=== PATIENT | male | born 1960 | race Caucasian/White ===

== ENCOUNTER 2017-01-21 19:44 | Emergency (ER) | payer SELFPAY ==
[2017-01-21 19:52] VITALS: BP 164/107
--- NOTE | 2017-01-21 21:44 | UC ---
Throat Pain/Nasal Lucien HPI - HPI Summary HPI Summary: 4-5 DAYS OF COUGH, CONGESTION, ST AND SWOLLEN GLANDS. GRAND DAUGHTERS BTH HAD STREP. DENIES FEVER. COUGH KEEPING HIM UP AT NIGHT. ALSO NEEDS REFILL OF BP MEDICINE. 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 OUT OF LISNOPRIL FOR SEVERAL MONTHS. - History of Current Complaint Chief Complaint: UCRespiratory Stated Complaint: SWOLLEN GLANDS,SORE THROAT Time Seen by Provider: 01/21/17 21:21 Hx Obtained From: Patient Onset/Duration: Gradual Onset, Lasting Days, Still Present Severity: Moderate Pain Intensity: 0 Pain Scale Used: 0-10 Numeric Cough: Nonproductive Associated Signs & Symptoms: Positive: Nasal Discharge. Negative: Hoarseness, Sinus Discomfort, Fever - Allergies/Home Medications Allergies/Adverse Reactions: Allergies Allergy/AdvReac Type Severity Reaction Status Date / Time No Known Allergies Allergy Verified 01/21/17 19:52 Home Medications: Home Medications Jzdcyjfihautx-[id number]-Isjtd [Nyquil Severe Cold/Flu 5-6.25-10-325 mg/15Ml] PRN 01/21/17 [History] PMH/Surg Hx/FS Hx/Imm Hx Cardiovascular History: Hypertension - Surgical History Surgical History: Yes Surgery Procedure, Year, and Place: Tonsilectomy. Tubes in ear. SINUS SURGERY 2015 - Family History Known Family History: Positive: Hypertension - Social History Alcohol Use: None Substance Use Type: None Smoking Status (MU): Former Smoker Type: Cigarettes Amount Used/How Often: 1/2 PPD Length of Time of Smoking/Using Tobacco: 25+ years Have You Smoked in the Last Year: Yes Review of Systems Constitutional: Negative Respiratory: Shortness Of Breath, Cough Cardiovascular: Negative Gastrointestinal: Negative All Other Systems Reviewed And Are Negative: Yes Physical Exam Triage Information Reviewed: Yes Appearance: Well-Appearing, No Pain Distress, Well-Nourished Vital Signs: Initial Vital Signs Temp 99.9 F 01/21/17 19:47 Pulse 101 01/21/17 19:47 Resp 18 01/21/17 19:47 BP 164/107 01/21/17 19:47 Pulse Ox 98 01/21/17 19:47 Vital Signs Reviewed: Yes Eyes: Positive: Conjunctiva Clear ENT: Positive: Hearing grossly normal, Pharynx normal, TMs normal Neck: Positive: Supple, Nontender, No Lymphadenopathy Respiratory Exam: Normal Respiratory: Positive: No respiratory distress, No accessory muscle use, Decreased breath sounds, Wheezing - DIFFUSE Cardiovascular Exam: Normal Abdomen Description: Positive: Soft Musculoskeletal: Positive: No Edema Neurological: Positive: Alert Psychological: Positive: Age Appropriate Behavior Skin: Negative: rashes Throat Pain/Nasal Course/Dx - Differential Dx/Diagnosis Provider Diagnoses: 1. BRONCHITIS WITH BRONCHOSPASM. 2. UNCONTROLLED HTN Discharge - Discharge Plan Condition: Stable Disposition: HOME Prescriptions: Albuterol HFA INHALER* [Ventolin HFA Inhaler*] 2 puff INH Q4H PRN #1 mdi PRN Reason: Shortness Of Breath Azithromycin [Azithromycin 500 MG TAB] 500 mg PO DAILY #5 tab Lisinopril [Prinivil TAB 20 mg] 20 mg PO DAILY #30 tab predniSONE TAB* [Deltasone TAB*] 50 mg PO DAILY #5 tab Patient Education Materials: Acute Bronchitis (ED), Bronchospasm (ED) Forms: *Work Release Referrals: No Primary Care Phys,NOPCP [Primary Care Provider] - Additional Instructions: MONITOR YOUR BP AT HOME AND KEEP A LOG TO TAKE TO YOUR NEW PCP FOR REVIEW. REST, HYDRATE. TAKE ANTIBIOTIC FOR THE FULL 5 DAYS. SEEK FOLLOW-UP IF YOU ARE NOT IMPROVING EXPECTED. CALL THE NUMBER BELOW FOR ASSISTANCE IN ESTABLISHING WITH A PCP An additional resource available to assist in finding the appropriate physician for your health care needs is the [facility] ([facility]). You may contact them by calling [phone].
[2017-01-21] MEDS ORDERED: predniSONE TAB* 20 MG PO ONE (21:54)
[2017-01-21] MEDS ORDERED: Azithromycin TAB* 250 MG PO ONE (21:54)
== END 2017-01-21 22:00 | disposition home or self-care (01) ==
LOC: UCEAST 19:44
DX: J20.9 Acute bronchitis, unspecified (principal); I10 Essential (primary) hypertension; Z72.0 Tobacco use
CPT/HCPCS: 99212; A9270-GY; G0463; J7512

== ENCOUNTER → 2017-06-11 06:02 | Emergency (ER) | payer BC ==
[~2017-06-11 06:02] MED LIST: Ketorolac INJ* 60 MG/2 ML VIAL IM ONE
--- NOTE | 2017-06-11 08:08 | RAD ---
INDICATION: 1 week of atraumatic right shoulder pain COMPARISON: None. TECHNIQUE: 4 views of the right shoulder were obtained. FINDINGS: The adequately corticated bones are in normal alignment. Degenerative changes of the right acromioclavicular joint include joint space narrowing and mild marginal osteophyte formation. The glenohumeral joint is appropriately aligned and the joint space is maintained. There is slight marginal osteophyte formation along the inferior margin of the glenohumeral joint. No fracture, dislocation or focal bony abnormality is seen. IMPRESSION: DEGENERATIVE CHANGES DESCRIBED ABOVE. If the patient's symptoms persist, follow-up imaging is recommended.
[2017-06-11 09:15] VITALS: BP 154/94
--- NOTE | 2017-06-11 18:46 | ED ---
Arash Murray Angela, scribed for Vinicio White MD on 06/11/17 at 0725 . Upper Extremity Pain - HPI Summary HPI Summary: This pt is a 57 y/o male [facility]/o right shoulder pain for approximately 1 week. 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 He denies any recent trauma to his shoulder. Pt notes that he started to take Ibuprofen and yesterday it began to feel better. 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 Pt was awoken up this morning at 0430 with pain. He notes decreased ROM of his right shoulder. - History of Current Complaint Chief Complaint: EDExtremityUpper Stated Complaint: RIGHT SHOULDER PAIN Time Seen by Provider: 06/11/17 07:04 Hx Obtained From: Patient Mechanism Of Injury: Other - none Onset/Duration: Started Days Ago, Atraumatic, Still Present Timing: Lasting Days Pain Location: Shoulder - right Aggravating Factor(s): Movement Alleviating Factor(s): Nothing Associated Signs & Symptoms: Positive: Other - decreased ROM. Negative: Fever - Allergies/Home Medications Allergies/Adverse Reactions: Allergies Allergy/AdvReac Type Severity Reaction Status Date / Time No Known Allergies Allergy Verified 06/11/17 06:06 PMH/Surg Hx/FS Hx/Imm Hx Endocrine/Hematology History: Denies: Hx Diabetes Cardiovascular History: Reports: Hx Hypertension - Surgical History Surgery Procedure, Year, and Place: Tonsilectomy. Tubes in ear. SINUS SURGERY 2016 Infectious Disease History: No Infectious Disease History: Denies: Traveled Outside the [place] in Last 30 Days - Family History Known Family History: Positive: Hypertension - Social History Alcohol Use: None Substance Use Type: Reports: None Smoking Status (MU): Former Smoker Type: Cigarettes Amount Used/How Often: 1/2 PPD Length of Time of Smoking/Using Tobacco: 25+ years Have You Smoked in the Last Year: Yes Review of Systems Negative: Fever, Chills Eyes: Negative ENT: Negative Cardiovascular: Negative Musculoskeletal: Other - right shoulder pain Positive: Decreased ROM - right shoulder Skin: Negative All Other Systems Reviewed And Are Negative: Yes Physical Exam - Summary Physical Exam Summary: VITAL SIGNS: Reviewed. GENERAL: Patient is a well-developed and nourished male who is lying comfortable in the stretcher. Patient is not in any acute respiratory distress. HEAD AND FACE: No signs of trauma. No ecchymosis, hematomas or skull depressions. No sinus tenderness. EYES: PERRLA, EOMI x 2, No injected conjunctiva, no nystagmus. EARS: Hearing grossly intact. Ear canals and tympanic membranes are within normal limits. MOUTH: Oropharynx within normal limits. NECK: Supple, trachea is midline, no adenopathy, no JVD, no carotid bruit, no c- spine tenderness, neck with full ROM. CHEST: Symmetric, no tenderness at palpation LUNGS: Clear to auscultation bilaterally. No wheezing or crackles. CVS: Regular rate and rhythm, S1 and S2 present, no murmurs or gallops appreciated. ABDOMEN: Soft, non-tender. No signs of distention. No rebound no guarding, and no masses palpated. Bowel sounds are normal. EXTREMITIES: FROM in all major joints, no edema, no cyanosis or clubbing. RUE: There is decreased ROM of right shoulder. Abduction is up to 45 degrees. There is no deformity, no ecchymosis, no swelling, no erythema. NEURO: Alert and oriented x 3. No acute neurological deficits. Speech is normal and follows commands. SKIN: Dry and warm Triage Information Reviewed: Yes Vital Signs On Initial Exam: Initial Vitals Temp Pulse Resp BP Pulse Ox 97.9 F 102 20 145/103 98 06/11/17 06:04 06/11/17 06:04 06/11/17 06:04 06/11/17 06:04 06/11/17 06:04 Vital Signs Reviewed: Yes Diagnostics - Vital Signs Vital Signs Temp Pulse Resp BP Pulse Ox 06/11/17 06:04 97.9 F 102 20 145/103 98 - Laboratory Lab Statement: Any lab studies that have been ordered have been reviewed, and results considered in the medical decision making process. - Radiology Right Shoulder XR Xray Interpretation: No Acute Changes - IMPRESSION: Degenerative changes as described above. ED physician has reviewed this radiology report and agrees. Radiology Interpretation Completed By: Radiologist Course/Dx - Course Assessment/Plan: This pt is a 57 y/o male presenting to [facility] c/o right shoulder pain for approximately 1 week. 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 He denies any recent trauma to his shoulder. Pt notes that he started to take Ibuprofen and yesterday it began to feel better. 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 Pt was awoken up this morning at 0430 with pain. He notes decreased ROM of his right shoulder. Right shoulder XR shows degenerative changes as described above. I believe the pt has a rotator cuff injury and thats why the pt is having pain. Pt was given Toradol for the pain and his symptoms improved slightly. He is now able to have increased range of movement, however, he was placed in a shoulder immobilizer and was given a referral to see orthopedics. Pt is hemodynamically stable, alert and oriented x3. Pt was discharged home with a prescription for norco. - Diagnoses Provider Diagnoses: Shoulder pain, Rotator cuff injury Discharge - Discharge Plan Condition: Stable Disposition: HOME Prescriptions: HYDROcodone/ACETAMIN 5-325 MG* [[place] 5-325 TAB*] 1 tab PO Q6H PRN #12 tab MDD 4 PRN Reason: Pain Patient Education Materials: Rotator Cuff Injury (ED), Shoulder Pain (ED) Forms: *Work Release Referrals: [facility] [Provider Group] (Address: [address] [place] [id number] ) No Primary Care Phys,NOPCP [Primary Care Provider] - Additional Instructions: Please follow up with orthopedics. RETURN TO THE ED FOR ANY WORSENING SYMPTOMS. The documentation as recorded by the Arash li Angela accurately reflects the service I personally performed and the decisions made by me, Vinicio White MD.
== END | disposition home or self-care (01) ==
LOC: ED 06:02
DX: M25.511 Pain in right shoulder (principal); S46.001A Unspecified injury of muscle(s) and tendon(s) of the rotator cuff of right shoulder, initial encounter; Z87.891 Personal history of nicotine dependence; I10 Essential (primary) hypertension; X58.XXXA Exposure to other specified factors, initial encounter; Y92.9 Unspecified place or not applicable
CPT/HCPCS: 96372; 99282; J1885